=== PATIENT | male | born 1965 | race Caucasian/White ===

== ENCOUNTER 2016-07-07 13:05 | Emergency (ER) | payer SELFPAY ==
[2016-07-07] MEDS ORDERED: NAPROXEN 250 MG TABLET PO ONE (13:16)
--- NOTE | 2016-07-07 13:20 | ER Document Report ---
ED Medical Screen (RME) - General Chief Complaint: Fall Stated Complaint: FALL,NECK AND RIB PAIN Mode of Arrival: Medic Information source: Patient Notes: 51-year-old male presents to the emergency department complaining of left hand, shoulder, rib, and back pain after mechanical fall 3 days ago. Reports slipped on his deck and fell approximately 2 feet. Denies loss of consciousness, chest pain, shortness of breath. Reports has history of fracture vertebrae due to previous falls in the past. Denies saddle numbness, or incontinence. I have greeted and performed a rapid initial assessment of this patient. A comprehensive ED assessment and evaluation of the patient, analysis of test results and completion of the medical decision making process will be conducted by additional ED providers. TRAVEL OUTSIDE OF THE [place] IN LAST 30 DAYS: No - Related Data Allergies/Adverse Reactions: No Known Allergies Allergy (Verified 07/07/16 13:12) Past Medical History Renal/ Medical History: Denies: Hx Peritoneal Dialysis - Immunizations Immunizations up to date: Yes Hx Diphtheria, Pertussis, Tetanus Vaccination: Yes Physical Exam - Vital signs Vitals: Temp Pulse Resp BP Pulse Ox 98.3 F 82 18 126/81 H 97 07/07/16 13:15 07/07/16 13:15 07/07/16 13:15 07/07/16 13:15 07/07/16 13:15 - General General appearance: Appears well, Alert In distress: None - Respiratory Respiratory status: No respiratory distress - Neurological Neuro grossly intact: Yes Cognition: Normal Orientation: AAOx4 [place] Coma Scale Eye Opening: Spontaneous David Coma Scale Verbal: Oriented David Coma Scale Motor: Obeys Commands David Coma Scale Total: 15 Speech: Normal Motor strength normal: LUE, RUE, LLE, RLE Course - Vital Signs Vital signs: Temp Pulse Resp BP Pulse Ox 98.3 F 82 18 126/81 H 97 07/07/16 13:15 07/07/16 13:15 07/07/16 13:15 07/07/16 13:15 07/07/16 13:15
--- NOTE | 2016-07-07 16:36 | ER Document Report ---
HPI - HPI Patient complains to provider of: fell on thursday Onset: Other - thursday Quality of pain: Achy Pain Level: 4 Context: 51 yo male fell off porch on thursday c/o exacerbation of chronic neck and back pain, left shoulder pain, left 5th finger pain. Was in xray already and has distal 5th left finger fx. hx t12 fx march from fall. Associated Symptoms: None Exacerbated by: Movement Relieved by: Denies Similar symptoms previously: Yes Recently seen / treated by doctor: No - ROS ROS below otherwise negative: Yes Systems Reviewed and Negative: Yes All other systems reviewed and negative - DERM Skin Color: Normal Past Medical History - General Information source: Patient - Social History Smoking Status: Current Every Day Smoker Frequency of alcohol use: Occasional Drug Abuse: None Lives with: Spouse/Significant other Family History: Reviewed & Not Pertinent Patient has suicidal ideation: No Patient has homicidal ideation: No Renal/ Medical History: Denies: Hx Peritoneal Dialysis Musculoskeltal Medical History: Reports Hx Musculoskeletal Trauma Surgical Hx: Negative - Immunizations Immunizations up to date: Yes Hx Diphtheria, Pertussis, Tetanus Vaccination: Yes Vertical Provider Document - CONSTITUTIONAL Agree With Documented VS: Yes Exam Limitations: No Limitations General Appearance: Mild Distress - INFECTION CONTROL TRAVEL OUTSIDE OF THE [place] IN LAST 30 DAYS: No - HEENT HEENT: Normocephalic - NECK Neck: Supple - mild tender mid c spine - RESPIRATORY Respiratory: Breath Sounds Normal, No Respiratory Distress O2 Sat by Pulse Oximetry: 97 - CARDIOVASCULAR Cardiovascular: Regular Rate, Regular Rhythm - BACK Notes: tender over lower t spine, left shoulder tender proximal humerus, tender and bruised distal left 5th finger. ROM normal. - MUSCULOSKELETAL/EXTREMETIES Musculoskeletal/Extremeties: MAEW, FROM, Tender - see above - NEURO Level of Consciousness: Awake, Alert, Appropriate, Agitated Motor/Sensory: No Motor Deficit, No Sensory Deficit - DERM Integumentary: Warm, Dry Course - Re-evaluation Re-evalutation: 07/07/16 18:28 spoke with pt about all his xray's and plan - Vital Signs Vital signs: Temp Pulse Resp BP Pulse Ox 98.3 F 82 18 126/81 H 97 07/07/16 13:15 07/07/16 13:15 07/07/16 13:15 07/07/16 13:15 07/07/16 13:15 Procedures - Immobilization Left Finger Time completed: 18:35 Pre-Proc Neuro Vasc Exam: Normal Performed by: PCT Post-Proc Neuro Vasc Exam: Normal Alignment checked and good: Yes Discharge - Discharge Clinical Impression: fracture distal phalanx left fifth finge, neck and back pain after fall, left shoulder pain after fall, old T12 compression fracture Condition: Good Disposition: HOME, SELF-CARE Instructions: Contusion ([facility]), Rib Contusion ([facility]), Fractured Finger ([facility]), Neck Injury (Cervical Strain) ([facility]), Chronic Back Pain ([facility]) Additional Instructions: see the orthopedic doctor for your finger fracture follow up keep the splint on untili you see the orthopedic doctor the other xrays are negative, old t12 fx from march Prescriptions: Promethazine HCl [Phenergan 25 mg Tablet] 25 mg PO Q4HP PRN #30 tablet PRN Reason: Ibuprofen [Motrin 800 mg Tablet] 800 mg PO Q8HP PRN #30 tablet PRN Reason: Tramadol HCl [Ultram 50 mg Tablet] 50 mg PO ASDIR PRN #20 tablet PRN Reason: Referrals: WILMA RIVAS MD [ACTIVE STAFF] - Follow up as needed
[2016-07-07 16:46] VITALS: BP 125/78
== END 2016-07-07 18:48 | disposition home or self-care (01) ==
LOC: ER 13:05
DX: S62.637A Displaced fracture of distal phalanx of left little finger, initial encounter for closed fracture (principal); M54.2 Cervicalgia; M54.9 Dorsalgia, unspecified; M25.512 Pain in left shoulder; F17.210 Nicotine dependence, cigarettes, uncomplicated; W19.XXXA Unspecified fall, initial encounter; Z87.311 Personal history of (healed) other pathological fracture
CPT/HCPCS: 72050; 72070; 99283

== ENCOUNTER 2017-01-11 15:07 | Emergency (ER) | payer SELFPAY ==
[2017-01-11] MEDS ORDERED: CYCLOBENZAPRINE HCL 10 MG TABLET PO ONE (15:14)
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
[2017-01-11 15:33] VITALS: BP 107/82
--- NOTE | 2017-01-11 15:49 | RADIOLOGY REPORT (SQ) ---
EXAM DESCRIPTION: CT CERVICAL SPINE WITHOUT COMPLETED DATE/TIME: 01/11/2017 3:35 pm REASON FOR STUDY: injury COMPARISON: None. TECHNIQUE: Axial images acquired through the cervical spine without intravenous contrast. Images re viewed with lung, soft tissue and bone windows. Reconstructed coronal and sagittal MPR images review ed. Images stored on PACS. All CT scanners at this facility use dose modulation, iterative reconstruction, and/or weight based d osing when appropriate to reduce radiation dose to as low as reasonably achievable (ALARA). [facility]: Dose Right [facility]: CareDose [facility]: Dose Right [facility]: Teradose 4D [facility]: Smart [email or web address] RADIATION DOSE: Up-to-date CT equipment and radiation dose reduction techniques were employed. CTDIv ol: 22.8 mGy. DLP: 472 mGy-cm. mGy. LIMITATIONS: None. FINDINGS: ALIGNMENT: Reversal of the lordotic curve. MINERALIZATION: Normal. VERTEBRAL BODIES: No fractures or dislocation. DISCS: Multilevel disc space narrowing with osteophytes. FACETS, LATERAL MASSES, POSTERIOR ELEMENTS: Facet arthropathy. No fractures. No dislocation. No ac lilly findings. HARDWARE: None in the spine. VISUALIZED RIBS: No fractures. LUNG APICES AND SOFT TISSUES: No significant or acute findings. OTHER: No other significant finding. IMPRESSION: CHRONIC DEGENERATIVE CHANGES. NO ACUTE FINDINGS. TECHNICAL DOCUMENTATION: JOB ID: [id number] Quality ID # [id number]: Final reports with documentation of one or more dose reduction techniques (e.g., Au tomated exposure control, adjustment of the mA and/or kV according to patient size, use of iterative reconstruction technique) 2010 [employer]- All Rights Reserved
--- NOTE | 2017-01-11 16:11 | RADIOLOGY REPORT (SQ) ---
EXAM DESCRIPTION: L SPINE WHOLE COMPLETED DATE/TIME: 01/11/2017 3:52 pm REASON FOR STUDY: injury COMPARISON: 03/29/2016 NUMBER OF VIEWS: Five views including obliques. TECHNIQUE: AP, lateral, oblique, and sacral radiographic images acquired of the lumbar spine. LIMITATIONS: None. FINDINGS: MINERALIZATION: Normal. SEGMENTATION: Normal. No transitional anatomy. ALIGNMENT: Normal. VERTEBRAE: Similar compression of the T12 vertebral body. No acute changes. DISCS: Multilevel disc space narrowing with osteophytes. POSTERIOR ELEMENTS: Pedicles and facets are intact. No pars defect or posterior arch defects. Facet arthropathy is present. HARDWARE: None in the spine. PARASPINAL SOFT TISSUES: Normal. PELVIS: Intact as visualized. No fractures or worrisome bone lesions. SI joints intact. OTHER: No other significant finding. IMPRESSION: No evidence for acute osseous injury. TECHNICAL DOCUMENTATION: JOB ID: [id number] [employer]- All Rights Reserved
--- NOTE | 2017-01-11 16:12 | RADIOLOGY REPORT (SQ) ---
EXAM DESCRIPTION: T SPINE AP/LAT COMPLETED DATE/TIME: 01/11/2017 3:52 pm REASON FOR STUDY: injury COMPARISON: 29 March 2016 NUMBER OF VIEWS: Two views. TECHNIQUE: AP and lateral radiographic images acquired of the thoracic spine. LIMITATIONS: None. FINDINGS: MINERALIZATION: Normal. ALIGNMENT: Normal. No scoliosis. VERTEBRAE: No acute fracture or bone lesion. Similar compression deformity of the T12 vertebral body . DISCS: Multilevel disc space narrowing with osteophytes. HARDWARE: None in the spine. MEDIASTINUM AND SOFT TISSUES: Normal heart size and aortic contour. No soft tissue abnormality. VISUALIZED LUNG GROSSMAN: Clear. OTHER: No other significant finding. IMPRESSION: No evidence of acute injury. TECHNICAL DOCUMENTATION: JOB ID: [id number] [employer]- All Rights Reserved
[2017-01-11] MEDS ORDERED: OXYCODONE-ACETAMINOPHEN 5-325 MG TABLET PO ONE (16:15)
== END 2017-01-11 16:15 | disposition home or self-care (01) ==
LOC: ER 15:07
DX: S29.019A Strain of muscle and tendon of unspecified wall of thorax, initial encounter (principal); S39.012A Strain of muscle, fascia and tendon of lower back, initial encounter; S16.1XXA Strain of muscle, fascia and tendon at neck level, initial encounter; W01.0XXA Fall on same level from slipping, tripping and stumbling without subsequent striking against object, initial encounter; Y92.009 Unspecified place in unspecified non-institutional (private) residence as the place of occurrence of the external cause; Z87.81 Personal history of (healed) traumatic fracture
CPT/HCPCS: 72070; 72110; 72125; 99284

== ENCOUNTER 2019-07-04 20:14 | Emergency (ER) | payer MEDICAID ==
[2019-07-04] MEDS ORDERED: MORPHINE SULFATE 10 MG/ML INJ IV ONE (20:55)
[2019-07-04] MEDS ORDERED: ONDANSETRON HCL INJ/PF 4 MG/2 ML SDV IV ONE (20:55)
--- NOTE | 2019-07-04 21:14 | ER Document Report ---
ED Fall - General Chief Complaint: Back Injury Stated Complaint: FALL/BACK AND NECK PAIN Time Seen by Provider: 07/04/19 20:42 Primary Care Provider: JESUS CEJA FNP-C [Primary Care Provider] - Follow up as needed Notes: CHIEF COMPLAINT: Multiple complaints HPI: 54-year-old male who appears older than stated age presenting for injuries sustained in a mechanical fall. Patient with history of chronic pain who normally takes Percocet states he has been seeing urgent care provider because he does not have a primary provider who wrote him for baclofen and gabapentin. States the baclofen makes him slightly dizzy and off-balance. States yesterday he was in the bathroom became nauseated after taking the medication and went to throw up then fell over striking his head on the toilet no loss of consciousness . States he also hit his arm on the counter and that caused his neck to jerk causing neck pain. Today with no headache but does complain of neck pain. Patient also complains of pain to the thoracic back because again today he states that the nausea continued and he lay down all day and when he got up he became dizzy and fell again landing on the couch injuring his thoracic back. Patient denies abdominal pain. He has not had actual vomiting. Denies diarrhea. Denies chest pain shortness of breath. Denies fever ROS: See HPI - all other systems were reviewed and are otherwise negative Constitutional: no fever or recent illness Eyes: no drainage, no blurred vision ENT: no runny nose, no sore throat Cardiovascular: no chest pain Resp: no SOB, no cough GI: no vomiting, no diarrhea, + nausea : no dysuria Integumentary: no rash Allergy: no hives Musculoskeletal: no extremity pain or swelling, + neck pain, upper back pain Neurological: no numbness/tingling, no weakness MEDICATIONS: I agree with the patient medications as charted by the RN. ALLERGIES: I agree with the allergies as charted by the RN. PAST MEDICAL HISTORY/PAST SURGICAL HISTORY: Reviewed and agree as charted by RN. SOCIAL HISTORY: Reviewed and agree as charted by RN. FAMILY HISTORY: No significant familial comorbid conditions directly related to patient complaint EXAM: Reviewed vital signs as charted by RN. CONSTITUTIONAL: Airway patent; alert and oriented and responds appropriately to questions. Well-appearing, well-nourished, mild distress secondary to pain HEAD: Normocephalic, atraumatic EYES: PERRL; EOM intact; Conjunctivae clear, sclerae non-icteric ENT: Midface is stable without tenderness; normal nose; no bleeding; normal pharynx, normal voice, no stridor, no intraoral lacerations or dental trauma noted; no hemotympanum NECK: Trachea is midline; mild tenderness over the cervical spine and cervical paraspinous musculature bilaterally, no step-offs, good range of motion; no contusions or hematomas CARD: Normal symmetric pulses; RRR; no murmurs, no clicks, no rubs, no gallops RESP: Normal chest excursion with respiration; chest wall appears atraumatic without ecchymoses or crepitance; Breath sounds clear and equal bilaterally ABD/GI: Appears atraumatic without contusions or hematomas; non-distended, soft, non-tender, no rebound, no guarding; no palpable organomegaly or masses PELVIS: Stable, nontender BACK: The back appears atraumatic, no step-offs; no tenderness over the lumbar spine on palpation. Mild lower thoracic back pain on palpation; there is no CVA tenderness EXT: Normal ROM in all joints; non-tender to palpation; no cyanosis, no effusions, no edema SKIN: Normal color for age and race; warm; dry; good turgor; no apparent lesions NEURO: Moves all extremities equally; Motor and sensory function intact PSYCH: The patient's mood and manner are appropriate. MDM: 54-year-old male 2 separate falls that were mechanical in nature. The first he was nauseated after taking baclofen and struck his head injuring his head and neck. Today he injured his thoracic back, history of chronic back pain issues. Complaining of continued nausea but has not had vomiting. No chest pain shortness of breath. Patient appears older than stated age, given his age will obtain a set of screening cardiac labs on him his EKG is normal sinus rhythm without ectopy. This was a repeat EKG, I was in the room for both and he was moving during the first causing the appearance of elevation in the inferior leads but on the repeat without movement there is no elevation of the ST leads in the inferior portion of the EKG. TRAVEL OUTSIDE OF THE [place] IN LAST 30 DAYS: No - Related data Allergies/Adverse Reactions: No Known Allergies Allergy (Verified 07/07/16 13:12) Past Medical History - Social History Smoking Status: Current Every Day Smoker Family History: Reviewed & Not Pertinent Patient has suicidal ideation: No Patient has homicidal ideation: No Renal/ Medical History: Denies: Hx Peritoneal Dialysis Musculoskeletal Medical History: Reports Hx Musculoskeletal Trauma - Immunizations Immunizations up to date: Yes Hx Diphtheria, Pertussis, Tetanus Vaccination: Yes Physical Exam - Vital signs Vitals: Temp Pulse Resp BP Pulse Ox 98.8 F 82 18 171/101 H 96 07/04/19 20:33 07/04/19 20:33 07/04/19 20:33 07/04/19 20:33 07/04/19 20:33 Course - Re-evaluation Re-evalutation: 07/04/19 21:58 CT imaging of the head and cervical spine did not show acute bleed or fracture. On review of the patient's T-spine x-ray there is a compression fracture of T12, on review of prior records and imaging in 2017 he had similar fracture noted on lumbar films 07/04/19 23:02 I discussed patient's imaging studies. He has an old T12 wedge fracture that he knows about. Patient also now complaining about pain in the left lower posterior molar, states he has had extremely poor dentition and believes he has an infection, there is significant dental caries throughout the oral cavity, mild tenderness on tapping of the left lower second molar, there is significant erosion of this tooth to the gingiva but no visible abscess 07/05/19 00:09 Patient's lab work and imaging studies are negative. Will discharge home to follow-up as previously discussed - Vital Signs Vital signs: Temp Pulse Resp BP Pulse Ox 98.8 F 82 18 171/101 H 95 07/04/19 20:33 07/04/19 20:33 07/04/19 20:33 07/04/19 20:33 07/04/19 21:37 - Laboratory Result Diagrams: 07/04/19 22:04 07/04/19 22:04 Laboratory results interpreted by me: 07/04/19 07/04/19 22:04 22:04 WBC 11.6 H RBC 5.58 H Absolute Neuts (auto) 8.9 H BUN 22 H Discharge - Discharge Clinical Impression: Pain, dental Fall Qualifiers: Encounter type: initial encounter Qualified Code(s): W19.XXXA - Unspecified fall, initial encounter Cervical strain, acute Qualifiers: Encounter type: initial encounter Qualified Code(s): S16.1XXA - Strain of muscle, fascia and tendon at neck level, initial encounter Head injury due to trauma Qualifiers: Encounter type: initial encounter Qualified Code(s): S09.90XA - Unspecified injury of head, initial encounter Acute thoracic back pain Qualifiers: Back pain laterality: midline Qualified Code(s): M54.6 - Pain in thoracic spine Condition: Stable Disposition: HOME, SELF-CARE Additional Instructions: Stop the baclofen. Pain medications and muscle relaxers as prescribed no driving if taking narcotics or muscle relaxers. It is imperative that you follow-up with a primary care provider and pain management physician for further evaluation and treatment of your ongoing back pain problems Prescriptions: Amoxicillin Trihydrate [Amoxil 500 mg Capsule] 500 mg PO TID #15 capsule Oxycodone HCl/Acetaminophen [Percocet 5-325 mg Tablet] 1 tab PO Q4H PRN #15 tablet PRN Reason: Methocarbamol [Robaxin-750] 750 mg PO TID PRN #15 tablet PRN Reason: Referrals: JESUS CEJA TELESALES SUPERVISOR-C [Primary Care Provider] - Follow up as needed PIERCE DOMINGUEZ DO [ACTIVE STAFF] - Follow up as needed
--- NOTE | 2019-07-04 21:53 | RADIOLOGY REPORT (SQ) ---
CT BRAIN AND CERVICAL SPINE EXAM DATE: 07/04/2019 8:53 PM [employer]IVERSITY PROFESSOR HISTORY: Trauma. COMPARISON: None. TECHNIQUE: CT scan of the brain and cervical spine without IV contrast. This exam was performed according to our departmental dose-optimization program, which includes automated exposure control, adjustment of the mA and/or kV according to patient size and/or use of iterative reconstruction technique. FINDINGS: BRAIN: The ventricles, cisterns, and sulci are age-appropriate. No evidence of acute infarction, intracranial hemorrhage, extra-axial fluid collection, or midline shift. There is mucoperiosteal thickening of the left maxillary sinus. No depressed skull fracture. CERVICAL SPINE: No acute cervical fracture or prevertebral soft tissue swelling. There is straightening of the normal cervical lordosis, which may be due to cervical collar, muscle spasm, or patient positioning. The disc spaces are preserved. Multilevel facet arthropathy throughout the cervical spine. No advanced canal stenosis is identified. IMPRESSION: 1. No acute intracranial hemorrhage. 2. No acute fracture or subluxation of the cervical spine.
--- NOTE | 2019-07-04 21:53 | RADIOLOGY REPORT (SQ) ---
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 COMPARISON: None. TECHNIQUE: CT scan of the brain and cervical spine without IV contrast. This exam was performed according to our departmental dose-optimization program, which includes automated exposure control, adjustment of the mA and/or kV according to patient size and/or use of iterative reconstruction technique. FINDINGS: BRAIN: The ventricles, cisterns, and sulci are age-appropriate. No evidence of acute infarction, intracranial hemorrhage, extra-axial fluid collection, or midline shift. There is mucoperiosteal thickening of the left maxillary sinus. No depressed skull fracture. CERVICAL SPINE: No acute cervical fracture or prevertebral soft tissue swelling. There is straightening of the normal cervical lordosis, which may be due to cervical collar, muscle spasm, or patient positioning. The disc spaces are preserved. Multilevel facet arthropathy throughout the cervical spine. No advanced canal stenosis is identified. IMPRESSION: 1. No acute intracranial hemorrhage. 2. No acute fracture or subluxation of the cervical spine.
--- NOTE | 2019-07-04 21:56 | RADIOLOGY REPORT (SQ) ---
EXAM DESCRIPTION: XR CHEST 2 VIEWS COMPLETED DATE/TME: 07/04/2019 20:54 CLINICAL HISTORY: 54 years, Male, fall COMPARISON: 07/07/2016 chest NUMBER OF VIEWS: 2 TECHNIQUE: 2 views of the chest LIMITATIONS: None. FINDINGS: The heart size is normal. The lungs are clear. There is no pneumothorax IMPRESSION: No acute cardiopulmonary process copyright 2011 [employer]- All Rights Reserved
--- NOTE | 2019-07-04 21:58 | RADIOLOGY REPORT (SQ) ---
EXAM DESCRIPTION: XR THORACIC SPINE 2 VIEWS COMPLETED DATE/TME: 07/04/2019 20:54 CLINICAL HISTORY: 54 years, Male, fall injury COMPARISON: 01/11/2017 thoracic spine NUMBER OF VIEWS: 2 TECHNIQUE: 2 views of the thoracic spine LIMITATIONS: . None FINDINGS: Grossly stable compression fracture deformity of T12. Height and alignment is otherwise preserved. Endplate degenerative changes T11/T12 and T12/L1 IMPRESSION: Stable T12 compression fracture deformity. No new or acute findings. copyright 2010 [employer]- All Rights Reserved
[2019-07-04 22:34] LABS: ABSOLUTE BASOPHILS # (AUTO) 0.1 10^3/uL (0.0-0.2); ABSOLUTE EOSINOPHILS # (AUTO) 0.2 10^3/uL (0.0-0.6); ABSOLUTE LYMPHOCYTES (AUTO) 1.6 10^3/uL (0.5-4.7); ABSOLUTE MONOCYTES (AUTO) 0.8 10^3/uL (0.1-1.4); ABSOLUTE NEUT (AUTO) 8.9 10^3/uL (1.7-8.2); BASOPHILS % (AUTO) 0.5 % (0-2); EOSINOPHILS % (AUTO) 2.1 % (0-6); HEMATOCRIT 48.4 % (37.9-51.0); HEMOGLOBIN 16.6 g/dL (13.5-17.0); LYMPHOCYTES % (AUTO) 13.7 % (13-45); MEAN CORPUSCULAR HEMOGLOBIN 29.7 pg (27.0-33.4); MEAN CORPUSCULAR HGB CONC 34.2 g/dL (32.0-36.0); MEAN CORPUSCULAR VOLUME 87 fl (80-97); MONOCYTES % (AUTO) 7.2 % (3-13); PLATELET COUNT 263 10^3/uL (150-450); RED BLOOD COUNT 5.58 10^6/uL (4.35-5.55); RED CELL DISTRIBUTION WIDTH 13.2 % (11.5-14.0); SEGMENTED NEUTROPHILS % (AUTO) 76.5 % (42-78); TOTAL CELLS COUNTED % (AUTO) 100 %; WHITE BLOOD COUNT 11.6 10^3/uL (4.0-10.5)
[2019-07-04 22:56] LABS: ALBUMIN 4.6 g/dL (3.5-5.0); ALCOHOL < 10 mg/dL (NONE DETECTED); ALKALINE PHOSPHATASE 69 U/L (38-126); ANION GAP 9 (5-19); ASPARTATE AMINO TRANSFERASE 27 U/L (17-59); BILIRUBIN,DIRECT 0.1 mg/dL (0.0-0.4); BILIRUBIN,TOTAL 0.5 mg/dL (0.2-1.3); BLOOD UREA NITROGEN 22 mg/dL (7-20); CALCIUM 9.6 mg/dL (8.4-10.2); CARBON DIOXIDE 29 mmol/L (22-30); CHLORIDE 102 mmol/L (98-107); GLUCOSE 93 mg/dL (75-110); POTASSIUM 4.1 mmol/L (3.6-5.0); TOTAL PROTEIN 7.7 g/dL (6.3-8.2)
[2019-07-04] MEDS ORDERED: AMOXICILLIN TRIHYDRATE 500 MG CAPSULE PO ONE (23:18)
[2019-07-04] MEDS ORDERED: OXYCODONE-ACETAMINOPHEN 5-325 MG TABLET PO ONE (23:19)
[2019-07-05 00:13] VITALS: BP 145/93
--- NOTE | 2019-07-05 11:31 | EKG REPORT ---
SEVERITY:- ABNORMAL ECG - SINUS RHYTHM ARTIFACTS, REC REPEAT EKG : Confirmed by: Francoise Timmons 05-Jul-2019 11:31:08
--- NOTE | 2019-07-05 11:31 | EKG REPORT ---
SEVERITY:- OTHERWISE NORMAL ECG - SINUS RHYTHM BORDERLINE RIGHT AXIS DEVIATION : Confirmed by: Francoise Timmons 05-Jul-2019 11:30:30
== END 2019-07-05 00:25 | disposition home or self-care (01) ==
LOC: ER 20:14
DX: S16.1XXA Strain of muscle, fascia and tendon at neck level, initial encounter (principal); S09.90XA Unspecified injury of head, initial encounter; K08.89 Other specified disorders of teeth and supporting structures; M54.6 Pain in thoracic spine; M54.2 Cervicalgia; R11.0 Nausea; R42 Dizziness and giddiness; M54.9 Dorsalgia, unspecified; G89.29 Other chronic pain; W19.XXXA Unspecified fall, initial encounter; Z79.899 Other long term (current) drug therapy; F17.200 Nicotine dependence, unspecified, uncomplicated
CPT/HCPCS: 93005; 36415; 80307; 85025; 80053; 84484; 71046; 72070; 70450; 72125; 93010; J2270; J2405; 96374; 96375; 99284